=== PATIENT | female | born 1940 | race Caucasian/White ===

== ENCOUNTER 2017-02-18 17:22 | Inpatient (IN) ==
[2017-02-18 18:35] VITALS: BMI 25.0
[2017-02-18] MEDS: ZESTRIL PO SCH (20:42)
[2017-02-18] MEDS: DUONEB NEB SCH (23:22)
[2017-02-19] MEDS: DUONEB NEB SCH ×4 (04:25→23:14)
[2017-02-19] MEDS: LASIX TAB PO SCH (05:44)
--- NOTE | 2017-02-19 07:33 | DI ---
EXAM: Two views of the chest. History: Short of breath Findings: Heart is enlarged. Sternotomy wires. Pacer device. Small to moderate left pleural effus ion and small right pleural effusion. No pneumothorax. Atherosclerotic vascular calcifications. Mi ld interstitial edema. No acute osseous abnormalities. Impression: 1. Cardiomegaly with mild interstitial edema. 2. Left greater than right bilateral pleural effusions
[2017-02-19] MEDS: ZESTRIL PO SCH (08:53)
[2017-02-19] MEDS: COREG PO SCH (17:40)
[2017-02-20] MEDS: DUONEB NEB SCH ×4 (04:20→22:20)
[2017-02-20] MEDS: LASIX TAB PO SCH (05:41)
[2017-02-20] MEDS: COREG PO SCH ×2 (08:49→18:23)
[2017-02-20] MEDS: ZESTRIL PO SCH (08:49)
[2017-02-20] MEDS: SYNTHROID PO SCH (08:51)
--- NOTE | 2017-02-20 15:41 | CT ---
EXAM: CT of the chest without contrast History: Persistent cough. Comparison: Chest radiograph 02/18/2017 Technique: Multiplanar CT images through the thorax were obtained without the administration of IV c ontrast Findings: Heart is mildly enlarged. No pericardial effusion. Great vessels are grossly unremarkabl e on this noncontrast study. No axillary adenopathy. Pacer device. Evaluation for mediastinal and hilar lymph nodes is limited due to the lack of IV contrast but no bulky adenopathy is seen. There i s interlobular septal thickening. No pneumothorax. Small to moderate left pleural effusion and smal l right pleural effusion. Bibasilar relaxation atelectasis and/or pneumonia. No suspicious lung mas ses or lung nodules. Within the visualized upper abdomen, no acute findings. No acute osseous abnormalities. Sternotomy wires. Impression: 1. Cardiomegaly with interstitial edema. 2. Small to moderate left pleural effusion and small right pleural effusion with adjacent relaxation atelectasis and lower lobe pneumonia.
[2017-02-20] MEDS ORDERED: CRESTOR PO SCH (21:00)
[2017-02-21] MEDS: DUONEB NEB SCH ×2 (04:16→11:21)
[2017-02-21] MEDS: SYNTHROID PO SCH (05:36)
[2017-02-21] MEDS: LASIX TAB PO SCH (05:36)
[2017-02-21] MEDS: ZESTRIL PO SCH (08:29)
[2017-02-21] MEDS: COREG PO SCH (08:30)
[2017-02-21 10:26] VITALS: BP 107/65; TEMP 97.9
--- NOTE | 2017-02-21 10:30 | ECHO2D ---
Date of Exam: [] Ordering Physician: [] Room #: [] Reason for Echo: [] Auscultation: [] Murmurs: [] M-Mode Normal Adult Results LV Dimensions Normal Adult Results AoV Opening excursions >1.6 [] LVEDD-base- 3.5-5.8 [] Ao root dimensions 2.0-3.7 [] LVESD-base- 3.1-4.6 [] L. Atrium dimensions 1.9-3.8 [] Post. Wall thickness 0.8-1.1 [] IV septum (thickness) 0.7-1.2 [] Post. Wall excursion 0.72-1.3 [] Septal motion [] Systolic motion R. Ventricular cavity 1.5-2.0 [] LVEF 60% [] Paradoxical septal wall motion [] 2-D : [] M-MODE: MV: [] AV: [] TV: [] PV: [] CHAMBER SIZE: [] WALL MOTION: [] PERICARDIUM: [] INTERPRETATION: 1. [] 2. [] 3. [] 4. [] MTDD
--- NOTE | 2017-02-22 13:46 | CONS ---
DATE OF SERVICE: 02/20/17 CONSULT FOLLOWUP SUBJECTIVE: 76 year old white female seems to upbeat. The patient has history of CHF, coronary bypass surgery and coronary artery disease. REVIEW OF SYSTEMS: CONSTITUTIONAL: No night sweats. No fatigue, malaise, lethargy. No fever or chills. HEENT: Eyes: No visual changes. No eye pain. No eye discharge. ENT: No runny nose. No epistaxis. No sinus pain. No sore throat. No odynophagia. No ear pain. No congestion. RESPIRATORY: No cough, no congestion. No hemoptysis. CARDIOVASCULAR: No angina symptoms. No CHF symptoms. No atypical chest pain for CAD. No palpitations. No shortness of breath. GASTROINTESTINAL: No abdominal pain. No nausea or vomiting. No diarrhea or constipation. No hematemesis. No hematochezia. GENITOURINARY: No urgency. No frequency. No dysuria. No hematuria. No obstructive symptoms. No discharge. No pain. No significant abnormal bleeding. MUSCULOSKELETAL: No musculoskeletal pain. No joint swelling. No arthritis. NEUROLOGICAL: No headache. No neck pain. No syncope. No seizures. No dizziness. PSYCHIATRIC: Not anxious. No depression. No suicidal thoughts. No homicidal thoughts. SKIN: No rash. No lesions. No wounds. ENDOCRINE: No unexplained weight loss. No weight gain. HEMATOLOGIC/LYMPHATIC: No anemia. No purpura. No petechiae. No prolonged or excessive bleeding. No palpable lymph nodes. PHYSICAL EXAMINATION: GENERAL: The patient is oriented to time, place and person. VITAL SIGNS: Temperature 97.9, pulse 78, respiratory rate 16, blood pressure 85/ 58 and pulse ox 98%. HEENT: Head normocephalic, atraumatic. Eyes: Extraocular muscles are intact. Pupils are equal, round and reactive to light and accommodation. Ears: No lesions. Nose appeared normal. Throat: No exudate or erythema. NECK: Supple. No JVD, no carotid bruit. No lymphadenopathy or thyromegaly. LUNGS: Decreased breath sounds but clear to auscultation. Percussion note normal. Chest symmetrical. HEART: S1, S2, no S3. No murmurs. No cyanosis or clubbing. No ascites. Pulses: Dorsalis pedis and posterior tibial pulses +1 to +2 both sides. ABDOMEN: Soft. Nontender. Bowel sounds active. No CVA tenderness. No mass felt. EXTREMITIES: No edema. Full range of motion of all extremities, equal. NEUROLOGIC: No focal deficit. Cranial nerves II through XII are grossly intact. No headache, no double vision or headache. SKIN: Not dry. Intact. Turgor - normal. LYMPHATIC: No palpable lymph nodes/no lymphedema. MUSCULOSKELETAL: Normal joints with no swelling. Muscle tone is normal. LABS: TSH 14, elevated BNP 821. ASSESSMENT: 1. CHF seems to be under control 2. Coronary bypass surgery 3. Coronary artery disease 4. Chronic lung disease 5. AICD 6. Dilated cardiomyopathy with poor ejection fraction RECOMMENDATIONS: 1. Agreed with present management with Coreg, Zestril, Lasix, potassium. 2. Synthroid 50mcg started 3. Start Crestor 10mg 4. Non HDL should be less than 100 and LDL should be less than 70. Discussed with the patient. 5. The patient had echocardiogram done which showed dilated cardiomyopathy ischemia. Very poor ejection fraction, Enlarged LA cavity, enlarged LV cavity. The patient is advised cardiac rehab. MTDD
--- NOTE | 2017-02-25 14:19 | ECHO2D ---
Date of Exam: 02/20/17 Ordering Physician: DR. CARLIE MARROQUIN Room #: 108 Reason for Echo: CHF, IMPLANTED DEFIBRILLATOR, CABG, HTN M-Mode Normal Adult Results LV Dimensions Normal Adult Results AoV Opening excursions >1.6 >1.6 LVEDD-base- 3.5-5.8 6.0 Ao root dimensions 2.0-3.7 3.5 LVESD-base- 3.1-4.6 L. Atrium dimensions 1.9-3.8 5.3 Post. Wall thickness 0.8-1.1 1.1 IV septum (thickness) 0.7-1.2 1.0 Post. Wall excursion 0.72-1.3 NORMAL Septal motion 0.1 Systolic motion R. Ventricular cavity 1.5-2.0 NORMAL LVEF 60% 30 -35% Paradoxical septal wall motion NORMAL 2-D : HYPOKINETIC LEFT VENTRICLE--ENLARGED LEFT ATRIAL AND LEFT VENTRICLE CAVITIES, NORMAL VALVES, NO EFFUSION, NO THROMBUS M-MODE: MV: NORMAL AV: NORMAL TV: NORMAL PV: CHAMBER SIZE: ENLARGED LEFT ATRIAL AND LEFT VENTRICLE CAVITIES WALL MOTION: HYPOKINETIC LEFT VENTRICLE--ESPECIALLY SEPTAL WALL PERICARDIUM: NORMAL INTERPRETATION: 1. HYPOKINETIC LEFT VENTRICLE--ESPECIALLY SEPTAL WALL 2. LEFT VENTRICULAR EJECTION FRACTION 30 TO 35% 3. ENLARGED LEFT ATRIAL AND LEFT VENTRICLE CAVITIES 4. NORMAL VALVES MTDD
--- NOTE | 2017-03-01 14:48 | PN ---
DATE OF SERVICE: 02/19/17 SUBJECTIVE: The patient was admitted with acute on chronic heart failure with a history of coronary artery disease and bypass surgery. The patient was a new patient to the clinic. BNP was 821. Shortness of breath is somewhat better. Chest x-ray does show pulmonary congestion. REVIEW OF SYSTEMS: CONSTITUTIONAL: No fever, no chills. HEENT: Normal. ENDOCRINE: No weight gain, no weight loss. CVS: No angina symptoms. No CHF symptoms. No palpitations. No atypical chest pain for CAD. Shortness of breath. No PND, no orthopnea. RESPIRATORY: No cough, no hemoptysis. GI: No nausea, no vomiting. No abdominal pain. : No hematuria. No polyuria. MUSCULOSKELETAL: No joint swelling. PSYCHIATRIC: Not anxious. No depression. No suicidal thoughts. No homicidal thoughts. SKIN: Intact. No rash. PHYSICAL EXAMINATION: V/S: Blood pressure 109/68, respiratory rate 14, heart rate 91, temperature 97.9 , saturation 94 on room air. HEENT: Normocephalic, atraumatic. Mucosa dry. Pallor positive. No icterus. NECK: Supple. No JVD, no carotid bruit. No lymphadenopathy. LUNGS: Basilar crackles. No rales or rhonchi. HEART: S1, S2 normal. No S3. No murmur, gallop or regurgitation. ABDOMEN: Soft, nontender. Bowel sounds active. No rigidity. No rebound or guarding. No CVA tenderness. EXTREMITIES: 1+ edema. No clubbing or cyanosis MUSCULOSKELETAL: No joint swelling. NEUROLOGIC: Awake, alert, oriented times three. No focal deficit. LYMPHATIC: No lymph nodes palpable. SKIN: Intact. LABS: Sodium 140, potassium 3.5, chloride 103, bicarb 29, BUN 13, creatinine 0.792, glucose 147, BNP 821, white count 7.39, hemoglobin 12.5, hematocrit 37.9 , platelet count 198. ASSESSMENT: 1. ACUTE ON CHRONIC HEART HEART FAILURE 2. CORONARY ARTERY DISEASE 3. CONGESTIVE HEART FAILURE 4. BYPASS SURGERY, QUADRUPLE BYPASS IN 2004. PACEMAKER PLACEMENT. 5. NONCOMPLIANCE WITH MEDICATION 6. COPD TIME SPENT: More than 35 minutes MTDD
--- NOTE | 2017-03-06 08:23 | PN ---
DATE OF SERVICE: 02/20/17 SUBJECTIVE: The patient was admitted with acute on chronic congestive heart failure. Consultation with Dr. Lockett. The patient's BNP was 821, TSH 14. The patient has been off of the home medications, so she is being restarted on the Synthroid and the Crestor. PHYSICAL EXAMINATION: V/S: Blood pressure 93/56, respiratory rate 20, heart rate 96, temperature 98.0 , saturation 93 on rom air. HEENT: Normocephalic, atraumatic. Mucosa dry. Pallor positive. No icterus. NECK: Supple. No JVD, no carotid bruit. No lymphadenopathy. LUNGS: Decreased basilar crackles. No rales or rhonchi. HEART: S1, S2 normal. No S3. No murmur, gallop or regurgitation. ABDOMEN: Soft, nontender. Bowel sounds active. No rigidity. No rebound or guarding. No CVA tenderness. EXTREMITIES: 1+ edema. No clubbing or cyanosis MUSCULOSKELETAL: No joint swelling. NEUROLOGIC: Awake, alert, oriented times three. No focal deficit. LYMPHATIC: No lymph nodes palpable. SKIN: Intact. LABS: Sodium 140, potassium 3.5, chloride 103, bicarb 29, BUN 15, creatinine 0.79, glucose 147, white count 7.39, hemoglobin 12.5, hematocrit 37.9, platelet count 198. ASSESSMENT: 1. ACUTE ON CHRONIC HEART FAILURE 2. SEVERE HYPOTHYROIDISM 3. CORONARY ARTERY DISEASE 4. STATUS POST QUADRUPLE BYPASS SURGERY 2004 5. DYSLIPIDEMIA 6. CHRONIC OBSTRUCTIVE PULMONARY DISEASE 7. NICOTINE USE PLAN: 1. Will get ABG's for hypoxemia. 2. CT of the chest to rule out any pneumonia. 3. Echocardiogram with Dr. Lockett. 4. Lifestyle modifications were discussed. TIME SPENT: More than 35 minutes MTDD
--- NOTE | 2017-03-21 08:30 | CONS ---
DATE OF CONSULTATION: 02/19/17 REASON FOR CONSULTATION: Short of breath HISTORY OF PRESENT ILLNESS: Recently relocated from [place] to here with no medications. Family took to [facility] shortness of air. Patient reports "I couldn't stay." Reports shortness of air with exertion at times, tired without exertion. REVIEW OF SYSTEMS: CONSTITUTIONAL: No night sweats. Fatigue at times. No fever or chills. HEENT: Eyes: No visual changes. No eye pain. No eye discharge. ENT: No sinus drainage. No epistaxis. No sinus pain. No sore throat. No odynophagia. No ear pain. No congestion. RESPIRATORY: Occasional cough, non productive, no congestion. No hemoptysis. Shortness of air with exertion at times. Only requires 1 pillow at night for sleep. CARDIOVASCULAR: No angina symptoms. No CHF symptoms. No atypical chest pain for CAD. No palpitations. No orthopnea. GASTROINTESTINAL: No abdominal pain. No nausea or vomiting. No diarrhea or constipation. No hematemesis. No hematochezia. GENITOURINARY: No urgency. No frequency. No dysuria. No hematuria. No obstructive symptoms. No discharge. No pain. No significant abnormal bleeding. MUSCULOSKELETAL: No musculoskeletal pain. No joint swelling. Arthritis pain. NEUROLOGICAL: No headache. No neck pain. No syncope. No seizures. No dizziness. PSYCHIATRIC: Not anxious. No depression. No suicidal thoughts. No homicidal thoughts. SKIN: No rash. No lesions. No wounds. Warm/Dry. ENDOCRINE: No unexplained weight loss. No weight gain. HEMATOLOGIC/LYMPHATIC: No anemia. No purpura. No petechiae. No prolonged or excessive bleeding. No palpable lymph nodes. MEDICATIONS: Not taking any medication currently since moving from [place]. Medication previously while in [place]: 1. Carvedilol 3.125mg twice a day 2. Rosuvastatin 20mg daily ( The patient did know that name, but not doses) Verified medications with [facility] in [place], [place]. ALLERGIES: No allergies PAST MEDICAL HISTORY/PAST SURGICAL HISTORY: COPD Congestive heart failure Hypertension [place], CABG (2004) A1cD Dementia (per family) Cholecystectomy Appendectomy Cataract SOCIAL/PERSONAL/FAMILY HISTORY: Stopped smoking in 2004. Drinking sparkling wine only. . PHYSICAL EXAMINATION: GENERAL: The patient is oriented times three. VITAL SIGNS: Pulse 83, blood pressure 108/64, temperature 97.6,O2 sat 96% on 2 liters. HEENT: Head normocephalic, atraumatic. Eyes: Extraocular muscles are intact. Pupils are equal, round and reactive to light and accommodation. Ears: No lesions. Nose appeared normal. Throat: No exudate or erythema. NECK: Supple. No JVD, no carotid bruit. No lymphadenopathy or thyromegaly. LUNGS: Clear to auscultation. Percussion note normal. Chest symmetrical. HEART: S1, S2, no S3. No murmurs. No cyanosis or clubbing. No ascites. Pulses: Dorsalis pedis and posterior tibial pulses +1. ABDOMEN: Soft. Nontender. Bowel sounds active. No CVA tenderness. No mass felt. EXTREMITIES: No edema. Full range of motion of all extremities, equal. NEUROLOGIC: No focal deficit. Cranial nerves II through XII are grossly intact. No headache, no double vision or headache. SKIN: Not dry. Intact. Turgor - normal. LYMPHATIC: No palpable lymph nodes/no lymphedema. MUSCULOSKELETAL: Normal joints with no swelling. Muscle tone is normal. LABS: WBC 7.39, Hgb 12.5, hct 37.9, glucose 147, BNP 821, EKG ST with 1st degree AV block. Chest x-ray cardiomegaly with mild interstitial edema. Left greater than right bilateral pleural effusion. ASSESSMENT: 1. History of CHF 2. COPD 3. Hypertension 4. CABG 2004 5. A1cD 6. Cholecystectomy Health Literacy= below average RECOMMENDATIONS: 1. Echo to evaluate LV function 2. T4 TSH 3. Lipids 4. A1c 5. Coreg 6. Zestril 7. Crestor 8. Lasix PO daily 9. Synthroid 50mg PO daily 10. CAD/CHF symptoms discussed. Thanks for referral will follow. MTDD
--- NOTE | 2017-05-06 08:53 | DS ---
DATE OF SERVICE: 02/21/17 FINAL DIAGNOSIS: 1. ACUTE ON CHRONIC SYSTOLIC HEART FAILURE 2. CORONARY ARTERY DISEASE, STATUS POST BYPASS SURGERY 3. HYPERTENSION 4. OUT OF MEDICATION AND NONCOMPLIANCE 5. AICD 6. CHOLECYSTECTOMY 7. APPENDECTOMY 8. CATARACT SURGERY 9. HYPERGLYCEMIA 10. OSTEOARTHRITIS 11. HYPOTHYROIDISM PLAN: 1. Discharge the patient home. 2. Lifestyle modification discussed. 3. New medications: Coreg 3.125 mg twice a day Lasix 20 mg p.o. daily Levothyroxine 50 mg P.O. daily Lisinopril 20 mg p.o. daily Crestor 10 mg p.o. daily Keflex 500 mg twice a day 4. Diet: Cardiac and healthy. No salt diet. 5. Activity: As much as tolerated. DISEASE SPECIFIC EDUCATION: About the CHF, fluid overload, worsening leg edema was discussed. Anytime there is more than 3 to 5 pound weight gain in one week , she needs to call the office and let us know. Medication compliance was discussed. HOSPITAL COURSE: Elvira Mccarty who is a 76 year old female was recently moved from [place] to [facility]. She has a history of bypass surgery with pacemaker. She had ran out of her medications and started having cough, congestion, shortness of breath and came to the office and seen by me. At that time the patient was admitted directly from the office. BNP was 821. Chest x-ray does show pulmonary congestion. At that time, cardiology consultation was obtained with Dr. Lockett. He did do an echocardiogram. Ejection fraction was 35 to 40. With the medications started of Coreg, Lasix and the thyroid medication, the leg edema got better and shortness of breath is improved. The patient was also treated for the bronchitis. Sugars were high at 147 and A1C 6.3. The patient was up and about walking and did not have any complications during the hospital stay. At that time the patient was discharged to home and advised about the medication compliance. TIME SPENT: MORE THAN 65 MINUTES TODAY MTDD
== END 2017-02-21 13:38 | disposition home or self-care (01) | DRG 292 ==
LOC: MEDSURG A 17:22
PROVIDERS: ADMIT Emergency Medicine; ATTEND Emergency Medicine
DX: I50.23 Acute on chronic systolic (congestive) heart failure (principal); I42.0 Dilated cardiomyopathy; J44.9 Chronic obstructive pulmonary disease, unspecified; J40 Bronchitis, not specified as acute or chronic; R06.02 Shortness of breath; I25.10 Atherosclerotic heart disease of native coronary artery without angina pectoris; R93.1 Abnormal findings on diagnostic imaging of heart and coronary circulation; I10 Essential (primary) hypertension; R73.9 Hyperglycemia, unspecified; E03.9 Hypothyroidism, unspecified; E78.5 Hyperlipidemia, unspecified; M19.90 Unspecified osteoarthritis, unspecified site; Z95.1 Presence of aortocoronary bypass graft; Z91.14 Patient's other noncompliance with medication regimen; Z95.810 Presence of automatic (implantable) cardiac defibrillator; Z90.49 Acquired absence of other specified parts of digestive tract; Z72.0 Tobacco use
CPT/HCPCS: 36415; 80053; 80061; 82550; 83036; 83880; 84439; 84443; 84484; 85025; 93005; 93010; 94640; 99223; 99233; 99239

== ENCOUNTER 2017-03-14 10:47 | Inpatient (IN) ==
[2017-03-14] MEDS: DUONEB NEB SCH ×3 (11:45→23:25)
[2017-03-14 11:53] VITALS: BMI 25.2
--- NOTE | 2017-03-14 12:08 | CT ---
EXAM: CT of the chest without contrast History: Short of breath Comparison: Chest radiograph 02/18/2017, chest CT 02/20/2017 Technique: Multiplanar CT images through the thorax were obtained without the administration of IV c ontrast. Findings: Heart remains enlarged. No pericardial effusion. Great vessels are unremarkable. No path ologically enlarged thoracic lymph nodes. Pacer device. Since the prior chest CT the pulmonary shady a has slightly improved and the pleural effusions have slightly decreased in size which are now small and greater on the left. No consolidated pneumonia. No pneumothorax. No suspicious lung masses or lung nodules. Within the visualized upper abdomen, no acute findings. The visualized osseous structures unchanged with no acute osseous abnormalities identified. Impression: Cardiomegaly with improving pulmonary edema and decreasing bilateral pleural effusions c ompared to the prior chest CT. There is no focal pneumonia.
[2017-03-14] MEDS: SOLU-MEDROL 40 MG IVP SCH ×3 (12:14→22:01)
[2017-03-14] MEDS ORDERED: LASIX IVP STA ×2 (16:24→16:25)
[2017-03-14] MEDS: LOVENOX SUBCUT SCH (16:47)
[2017-03-14] MEDS: COREG PO SCH (17:12)
[2017-03-14] MEDS: CRESTOR PO SCH (22:01)
[2017-03-15] MEDS: DUONEB NEB SCH ×3 (04:53→19:14)
[2017-03-15] MEDS: SYNTHROID PO SCH (06:04)
[2017-03-15] MEDS: LASIX TAB PO SCH (06:04)
[2017-03-15] MEDS: SOLU-MEDROL 40 MG IVP SCH ×3 (06:04→22:14)
--- NOTE | 2017-03-15 09:20 | NM ---
EXAM: Ventilation perfusion lung scan HISTORY: Elevated D-dimer. Short of breath COMPARISON: None of this type. CT 03/14/2017. PROCEDURE: Ventilation: The patient was allowed to inhale from a reservoir of 32.1 mCi of 99 technetium DTPA ae rosol. Subsequently anterior, posterior, lateral and anterior and posterior oblique images were obta ined. Perfusion: The patient was injected with 5.3 mCi of 99 technetium MAA intravenously after which ante rior, posterior, lateral and anterior and posterior oblique images were obtained. FINDINGS: The ventilation images demonstrate a modestly nonuniform distribution of activity. There i s retained activity in the upper airway and a small amount of swallowed activity in the stomach and s mall bowel. The perfusion images demonstrate a matching pattern of activity with a more uniform dist ribution and no mismatched segmental or subsegmental defects consistent with pulmonary embolus. Ther e is evidence of CT demonstrated cardiomegaly. IMPRESSION: 1. Low probability of pulmonary embolus. 2. Evidence of underlying lung disease.
[2017-03-15] MEDS: COREG PO SCH ×2 (10:04→17:47)
[2017-03-15] MEDS: ZESTRIL PO SCH (10:04)
[2017-03-15] MEDS: LOVENOX SUBCUT SCH (10:05)
[2017-03-15] MEDS: CRESTOR PO SCH (22:14)
[2017-03-16] MEDS: DUONEB NEB SCH ×4 (05:00→22:00)
[2017-03-16] MEDS: SOLU-MEDROL 40 MG IVP SCH ×3 (05:07→20:56)
[2017-03-16] MEDS: SYNTHROID PO SCH (05:51)
[2017-03-16] MEDS: LASIX TAB PO SCH (05:51)
[2017-03-16] MEDS: ZESTRIL PO SCH (09:16)
[2017-03-16] MEDS: COREG PO SCH ×2 (09:16→17:04)
[2017-03-16] MEDS: LOVENOX SUBCUT SCH (09:16)
[2017-03-16] MEDS: CRESTOR PO SCH (20:56)
[2017-03-17 05:05] VITALS: BP 134/81; TEMP 97.9
[2017-03-17] MEDS: DUONEB NEB SCH ×2 (05:39→10:00)
[2017-03-17] MEDS: LASIX TAB PO SCH (05:48)
[2017-03-17] MEDS: SOLU-MEDROL 40 MG IVP SCH (05:48)
[2017-03-17] MEDS: SYNTHROID PO SCH (05:49)
[2017-03-17] MEDS: COREG PO SCH (09:25)
[2017-03-17] MEDS: ZESTRIL PO SCH (09:25)
[2017-03-17] MEDS: LOVENOX SUBCUT SCH (09:40)
--- NOTE | 2017-03-22 13:18 | PN ---
DATE OF SERVICE: 03/16/17 SUBJECTIVE: The patient was admitted with acute on chronic heart failure and shortness of breath. The patient was hypoxemic. Ventilation perfusion lung scan is negative. Up and about walking less short of breath now. REVIEW OF SYSTEMS: CONSTITUTIONAL: No fever, no chills. HEENT: Normal. ENDOCRINE: No weight gain, no weight loss. CVS: No angina symptoms. No CHF symptoms. No palpitations. No atypical chest pain for CAD. No shortness of breath. No PND, no orthopnea. RESPIRATORY: No cough, no hemoptysis. GI: No nausea, no vomiting. No abdominal pain. : No hematuria. No polyuria. MUSCULOSKELETAL: No joint swelling. PSYCHIATRIC: Not anxious. No depression. No suicidal thoughts. No homicidal thoughts. SKIN: Intact. No rash. PHYSICAL EXAMINATION: V/S: Blood pressure 139/89, respiratory rate 21, heart rate 98, temperature 97.4 and pulse ox 98%. HEENT: Normocephalic, atraumatic. Mucosa dry. Pallor positive. No icterus. NECK: Supple. No JVD, no carotid bruit. No lymphadenopathy. LUNGS:Bilateral entry is decreased. Clear to auscultation. No rales or rhonchi. HEART: S1, S2 normal. No S3. No murmur, gallop or regurgitation. ABDOMEN: Soft, nontender. Bowel sounds active. No rigidity. No rebound or guarding. No CVA tenderness. EXTREMITIES: No pedal edema. No clubbing or cyanosis MUSCULOSKELETAL: No joint swelling. NEUROLOGIC: Awake, alert, oriented times three. No focal deficit. LYMPHATIC: No lymph nodes palpable. SKIN: Intact. LABS: WBC 9.51, hgb 13.2, hct 38.7, plt count 176, Sodium 139, potassium 4.2, chloride 104, bicarb 24, BUN 16, creatinine 0.73 and glucose 163. ASSESSMENT: 1. Acute on chronic heart failure 2. COPD exacerbation secondary to the bronchitis 3. Coronary artery disease 4. Bypass surgery 5. Non compliance PLAN: 1. Continue the Solu-Medrol Q 12 hours 2. Lovenox SUBQ daily 3. Coreg 4. Breathing treatments. TIME SPENT: More than 35 minutes MTDD
--- NOTE | 2017-03-22 13:29 | DS ---
DATE OF SERVICE: 03/17/17 FINAL DIAGNOSIS: 1. COPD exacerbation secondary to the upper respiratory bronchitis 2. Acute on chronic heart failure 3. Coronary artery disease 4. Bypass surgery 5. Congestive heart failure 6. Noncompliance 7. Dyslipidemia 8. History of nicotine use. 9. Hypertension 10.Hypothyroidism DISCHARGE INSTRUCTIONS: Discharge the patient home. Continue the rest of the home medications. MEDICATIONS AT DISCHARGE: Coreg Lasix Levothyroxine Lisinopril Prednisone Crestor NEW PRESCRIPTIONS: Keflex 500mg twice a day Prednisone 10mg twice a day DIET INSTRUCTIONS: Cardiac and Healthy ACTIVITY: As much as tolerated SMOKING: Former Smoker DISEASE SPECIFIC EDUCATION: COPD Needing for the pneumonia vaccination CHF Salt control Medication compliance been discussed. HOSPITAL COURSE: Elvira Mccarty who was recently discharged from the hospital after the acute on chronic heart failure went home and was doing fine came back to the office with two onset of cough, congestion and shortness of breath. She came to the office huffing and puffing. She was admitted to the hospital directly. CT of the chest was negative for any acute findings, showing the coronary artery calcification. D-Dimer was elevated 1674. We were not able to do the CT scan with the PE protocol so we did the ventilation perfusion scanning which was minimal probability. BNP 988. The patient was given extra dose of Lasix IV push which did help her. Started her on some breathing treatments and steroids. Lovenox for the DVT prophylaxis. Gradually up and about walking and did not have any problems. Shortness of breath was gradually getting better. The patient was able to start walking in the hospital corridor. Carter better. Today she was a lot better and she request that she wanted to go home. The patient is being discharged home. TIME SPENT: MORE THAN 65 MINUTES MTDD
== END 2017-03-17 09:55 | disposition home or self-care (01) | DRG 190 ==
LOC: MEDSURG B 10:47
PROVIDERS: ADMIT Emergency Medicine; ATTEND Emergency Medicine
DX: J44.1 Chronic obstructive pulmonary disease with (acute) exacerbation (principal); I50.23 Acute on chronic systolic (congestive) heart failure; J20.9 Acute bronchitis, unspecified; J44.0 Chronic obstructive pulmonary disease with (acute) lower respiratory infection; R79.1 Abnormal coagulation profile; R09.02 Hypoxemia; R06.02 Shortness of breath; I25.10 Atherosclerotic heart disease of native coronary artery without angina pectoris; E78.5 Hyperlipidemia, unspecified; I10 Essential (primary) hypertension; E03.9 Hypothyroidism, unspecified; I25.2 Old myocardial infarction; Z91.19 Patient's noncompliance with other medical treatment and regimen; Z95.1 Presence of aortocoronary bypass graft; Z95.810 Presence of automatic (implantable) cardiac defibrillator; Z87.891 Personal history of nicotine dependence; Z79.899 Other long term (current) drug therapy
CPT/HCPCS: 36415; 80053; 82550; 82803; 83880; 84484; 85025; 85379; 93005; 93010; 94640

== ENCOUNTER 2017-05-03 13:56 | Emergency (ER) ==
[2017-05-03 14:03] VITALS: BP 146/90; TEMP 98.8; BMI 25.6
--- NOTE | 2017-05-03 14:04 | ED.PDOC ---
General ED Provider: Dr. TOR GALAVIZ MD Chief Complaint: Abdominal Pain Stated Complaint: ACUTE ONSET ABD PAIN NOW GONE, NOTHING Time Seen by Physician: 14:15 Mode of Arrival: Ambulance Information Source: Patient Exam Limitations: No limitations [facility] Documentation Reviewed and Agree: Yes Reviewed sepsis parameters & appropriate labs ordered?: Yes System Inflammatory Response Syndrome: Not Applicable Sepsis Protocol: For patient's 13 years and over: Temp is 96.8 and below OR 101 and greater Pulse >90 BPM Resp >20/minute Acutely Altered Mental Status Are patient's symptoms suggestive of a new infection, such as: -Pneumonia -Skin, Soft Tissue -Endocarditis -UTI -Bone, Joint Infection -Implantable Device -Acute Abdominal Infection -Wound Infection -Meningitis -Blood Stream Catheter Infection -Unknown GI Complaint Exam - Abdominal Pain Complaint/Exam Duration: 10 MINUTES Symptoms Are: Resolved Timing: Constant Initial Severity: Moderate Current Severity: None Location of Pain: Discrete, Epigastric Character: Reports: Aching Aggravating: Reports: None Alleviating: Reports: None Review of Systems - Review Of Systems Constitutional: Reports: No symptoms Eyes: Reports: No symptoms Ears, Nose, Mouth, Throat: Reports: No symptoms Respiratory: Reports: Short of air Cardiac: Reports: No symptoms GI: Reports: No symptoms : Reports: No symptoms Musculoskeletal: Reports: No symptoms Skin: Reports: No symptoms Neurological: Reports: No symptoms Endocrine: Reports: No symptoms Hematologic/Lymphatic: Reports: No symptoms All Other Systems: Reviewed and Negative Past Medical History - Past Medical History Previously Healthy: Yes Endocrine: Reports: None Cardiovascular: Reports: [place] Respiratory: Reports: None Hematological: Reports: None Gastrointestinal: Reports: None Genitourinary: Reports: None Neuro/Psych: Reports: None Musculoskeletal: Reports: None Cancer: Reports: None - Surgical History General Surgical History: Reports: Unknown (cCABG) - Family History Family History: Reports: None - Social History Smoking Status: Former smoker Physical Exam - Physical Exam Appearance: Well-appearing, No pain distress, Well-nourished Ill-appearing: None Pain Distress: None Eyes: VAIBHAV, EOMI, Conjunctiva clear ENT: Ears normal, Nose normal, Oropharynx normal Neck: Supple Respiratory: Airway patent, Breath sounds clear, Breath sounds equal, Respirations nonlabored Cardiovascular: RRR, Pulses normal, No rub, No murmur GI/: Soft, Nontender, No masses, Bowel sounds normal, No Organomegaly Musculoskeletal: Normal strength, ROM intact, No edema, No calf tenderness Skin: Warm, Dry, Normal color Neurological: Sensation intact, Motor intact, Reflexes intact, Cranial nerves intact, Alert, Oriented Psychiatric: Affect appropriate (Abd pain resolved upon presentation), Mood appropriate Interpretation - Radiology Interpretation Exam Interpreted: CXR Xray Comments: AAS some gas and lot of stool Radiology Interpretation By: ED Physician - [employer] Worker Rate: Normal Rhythm: Other (old infart, per patient history) Critical Care Note - Critical Care Note Total Time (mins): 0 Course - Course Hematology/Chemistry: 05/03/17 14:23 05/03/17 14:23 Orders, Labs, Meds: Lab Review 05/03/17 05/03/17 14:23 14:23 WBC 9.36 RBC 4.10 L Hgb 13.0 Hct 37.7 MCV 92.0 MCH 31.7 H MCHC 34.5 RDW Coeff of Alondra 13.2 Plt Count 193 Immature Gran % (Auto) 0.4 Neut % (Auto) 73.9 Lymph % (Auto) 15.6 [place] % (Auto) 6.8 Eos % (Auto) 2.7 Baso % (Auto) 0.6 Immature Gran # (Auto) 0.0 Neut # (Auto) 6.9 Lymph # (Auto) 1.5 [place] # (Auto) 0.6 Eos # (Auto) 0.3 Baso # (Auto) 0.1 Sodium 141 Potassium 4.1 Chloride 104 Carbon Dioxide 25 Anion Gap 16.1 BUN 14 Creatinine 0.77 Estimated GFR (MDRD) 73.00 BUN/Creatinine Ratio 18.18 Glucose 143 H Calcium 9.6 Total Bilirubin 1.0 AST 16 ALT 14 Alkaline Phosphatase 72 Total Protein 6.8 Albumin 3.5 Globulin 3.3 Albumin/Globulin Ratio 1.06 Lipase 13 Orders Category Date Time Status EKG-(ED ONLY) Stat CARDIO 05/03/17 14:09 Completed CBC W/ AUTO DIFF Stat LAB 05/03/17 14:23 Completed COMPREHENSIVE METABOLIC PANEL Stat LAB 05/03/17 14:23 Completed LIPASE Stat LAB 05/03/17 14:23 Completed ACUTE ABD. SERIES W/ PA CHEST Stat RADS 05/03/17 14:09 Completed Vital Signs: Temp Pulse Resp BP Pulse Ox 05/03/17 13:57 98.8 F 105 H 20 146/90 H 97 Departure - Departure Time of Disposition: 13:50 Disposition: HOME SELF-CARE Discharge Problem: Abdominal pain Qualifiers: Abdominal location: epigastric Qualified Code(s): R10.13 - Epigastric pain Instructions: Acute Abdominal Pain (DC) Condition: Good Pt referred to PMD for follow-up: Yes IPMP verified?: No Allergies/Adverse Reactions: Allergies No Known Allergies Allergy (Verified 05/03/17 14:02) Home Medications: Ambulatory Orders Carvedilol [Coreg] 3.125 mg PO BID #60 tablet 02/21/17 Furosemide [Lasix] 20 mg PO DAILY #30 tablet 02/21/17 Levothyroxine Sodium 50 mcg PO DAILY #30 tablet 02/21/17 Rosuvastatin Calcium [Crestor] 10 mg PO BEDTIME #30 tablet 02/21/17 Sacubitril/Valsartan [Entresto 24 mg-26 mg Tablet] 1 each PO DAILY 05/03/17
--- NOTE | 2017-05-03 14:50 | DI ---
Exam: Acute abdomen series, three views. HISTORY: Abdomen pain. . COMPARISON: Chest x-ray dated 02/18/2017 FINDINGS: A frontal view of the chest and two views of the abdomen. There are postoperative changes from prior CABG. Left-sided cardiac pacer/defibrillator is noted. The lungs are hyperexpanded. Th e lungs are clear without consolidation or effusion. There are no suspicious nodules. The heart siz e and vasculature is normal. There is no free air under the diaphragms. Supine and upright views of the abdomen and pelvis. There are clips in the right upper quadrant. Gas and stool is seen throughout the colon and into the rectum. There are no dilated loops of small bow el. A moderate amount of stool is seen in the colon. There are no abnormal masses. The osseous s tructures are normal for age. IMPRESSION: 1. No acute pulmonary disease. 2. Non-obstructive bowel gas pattern.
== END 2017-05-03 18:22 | disposition home or self-care (01) ==
LOC: ED 13:56
DX: R10.13 Epigastric pain (principal); I25.2 Old myocardial infarction; Z95.1 Presence of aortocoronary bypass graft; Z79.899 Other long term (current) drug therapy; R06.02 Shortness of breath; R07.9 Chest pain, unspecified
CPT/HCPCS: 36415; 80053; 83690; 85025; 93005; 93010; 99283